=== PATIENT | male | born 1985 | race African-American/Black ===

== ENCOUNTER 2016-11-05 09:51 | Emergency (ER) | payer SELFPAY ==
[2016-11-05 10:04] VITALS: BMI 45.6
--- NOTE | 2016-11-05 10:51 | PDOC ---
History of Present Illness - General History Source: Patient Exam Limitations: No Limitations - History of Present Illness Initial Comments: 11/05/16 11:10 Patient is a 30 year old male with no pmhx who presents to the ED sent by optomologist for evaluation of DM. Patient reports blurry vision for 2 weeks with associated increased thirst, urinary frequency and urgency. He denies any dysuria. He denies any recent weight loss. Patient reports difficulty seeing far away. He denies fever or chills. He denies nausea, vomiting, diarrhea or constipation. He denies cp or SOB. He denies any headache. He denies any tingling or numbness. 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 <Karla Fonseca - Last Filed: 11/05/16 14:03> <Zuleima Mariano - Last Filed: 11/05/16 15:12> - General Chief Complaint: Blurry Vision Stated Complaint: SENT FOR EVALUATION R/O DM Time Seen by Provider: 11/05/16 10:22 Past History <Karla Fonseca - Last Filed: 11/05/16 14:03> - Past Medical History Other medical history: OBESITY, PT DENIES - Psycho/Social/Smoking Cessation Hx Suicidal Ideation: No Smoking History: Never smoked Information on smoking cessation initiated: No Hx Alcohol Use: No Drug/Substance Use Hx: No Substance Use Type: None <Zuleima Mariano - Last Filed: 11/05/16 15:12> - Past Medical History Allergies/Adverse Reactions: Allergies Allergy/AdvReac Type Severity Reaction Status Date / Time No Known Allergies Allergy Verified 11/05/16 10:04 Home Medications: Ambulatory Orders Glipizide 5 mg PO DAILY #14 tablet 11/05/16 Review of Systems - Review of Systems Able to Perform ROS?: Yes Comments:: 11/05/16 11:10 GENERAL/CONSTITUTIONAL: No fever or chills. No weakness. HEAD, EYES, EARS, NOSE AND THROAT: +blurry vision. No ear pain or discharge. No sore throat. GASTROINTESTINAL: No nausea, vomiting, diarrhea or constipation. GENITOURINARY: No dysuria, frequency, or change in urination. CARDIOVASCULAR: No chest pain or shortness of breath. RESPIRATORY: No cough, wheezing, or hemoptysis. MUSCULOSKELETAL: No joint or muscle swelling or pain. No neck or back pain. SKIN: No rash NEUROLOGIC: No headache, vertigo, loss of consciousness, or change in strength/ sensation. ENDOCRINE: No increased thirst. No abnormal weight change. HEMATOLOGIC/LYMPHATIC: No anemia, easy bleeding, or history of blood clots. ALLERGIC/IMMUNOLOGIC: No hives or skin allergy. <Karla Fonseca - Last Filed: 11/05/16 14:03> *Physical Exam - Vital Signs Last Vital Signs Temp Pulse Resp BP Pulse Ox 98.1 F 107 H 18 163/81 97 11/05/16 10:02 11/05/16 10:02 11/05/16 10:02 11/05/16 10:02 11/05/16 10:02 - Physical Exam Comments: 11/05/16 11:11 GENERAL: Awake, alert, and fully oriented, in no acute distress HEAD: No signs of trauma EYES: PERRLA, EOMI, sclera anicteric, conjunctiva clear ENT: Auricles normal inspection, hearing grossly normal, nares patent, oropharynx clear without exudates. Moist mucosa NECK: Normal ROM, supple, no lymphadenopathy, JVD, or masses LUNGS: Breath sounds equal, clear to auscultation bilaterally. No wheezes, and no crackles HEART: Regular rate and rhythm, normal S1 and S2, no murmurs, rubs or gallops ABDOMEN: +Obese. Soft, nontender, normoactive bowel sounds. No guarding, no rebound. No masses EXTREMITIES: Normal range of motion, no edema. No clubbing or cyanosis. No cords, erythema, or tenderness NEUROLOGICAL: Cranial nerves II through XII grossly intact. Normal speech, normal gait SKIN: Warm, Dry, normal turgor, no rashes or lesions noted. <Karla Fonseca - Last Filed: 11/05/16 14:03> - Vital Signs Last Vital Signs Temp Pulse Resp BP Pulse Ox 98.1 F 107 H 18 163/81 97 11/05/16 10:02 11/05/16 10:02 11/05/16 10:02 11/05/16 10:02 11/05/16 10:02 <Zuleima Mariano - Last Filed: 11/05/16 15:12> ED Treatment Course - LABORATORY CBC & Chemistry Diagram: 11/05/16 11:08 11/05/16 11:08 <Karla Fonseca - Last Filed: 11/05/16 14:03> - LABORATORY CBC & Chemistry Diagram: 11/05/16 11:08 11/05/16 14:03 <Zuleima Mariano - Last Filed: 11/05/16 15:12> Medical Decision Making - Medical Decision Making 11/05/16 14:04 A call was placed to [facility] and an appointment was made for the patient at 4:30PM today at [address] [place] [address] & patient must present with discharge papers from today and lab work done in the ED. <Karla Fonseca - Last Filed: 11/05/16 14:03> - Medical Decision Making 11/05/16 12:52 a/p: 30yo male presents for a 2 week hx of polydipsia and polyuria. Pt also with blurred vision x 2 weeks. Seen by ophtho who recommended eval for poss dm. -will check labs -ivf hydration -suspect new onset dm given symptoms. will check for electrolyte abnl and glucose 11/05/16 12:53 labs reviewed: Cr. 1.6, Glu >500, concern for dehydration causing elevated Cr 11/05/16 12:54 no prior labs to compare to call placed to [facility], awaiting call back for admission. 11/05/16 15:10 case discussed with , recommends outpt managemnet. States patient does not meet criteria for inpt admission or obs. Call placed to [facility] for 430 today. Glipizide Rx sent to pharmacy. Discussed need for patient to go tot clinic. Discussed all reasons for the patient to return to the ED. Discussed need for diet, exercise and diabetic diet. Answered all questions. <Zuleima Mariano - Last Filed: 11/05/16 15:12> *DC/Admit/Observation/Transfer - Attestations Scribe Attestion: 11/05/16 11:11 Documentation prepared by JAMAL Kurtz, acting as medical anthropologist for Zuleima Mariano DO, MD/. <Karla Fonseca - Last Filed: 11/05/16 14:03> - Discharge Dispostion Admit: No - Attestations Physician Attestion: 11/05/16 11:12 I, Dr. Zuleima Mariano, DO, attest that this document has been prepared under my direction and personally reviewed by me in its entirety. I further attest, that it accurately reflects all work, treatment, procedures and medical decision -making performed by me. <Zuleima Mariano - Last Filed: 11/05/16 15:12> Diagnosis at time of Disposition: Diabetes mellitus, new onset - Prescriptions Prescriptions: Glipizide 5 mg PO DAILY #14 tablet - Patient Instructions Printed Discharge Instructions: Type 2 Diabetes, Lifestyle Changes as Effective as Drugs in Preventing Progression to Diabet Additional Instructions: Please go to your appointment at [facility] at [address] [place] [address] , Please bring your labs with you.
[2016-11-05] MEDS ORDERED: SODIUM CHLORIDE 0.9% 1000 ML INFUS.BAG IV ONE ×2 (10:53→12:40)
[2016-11-05 11:52] LABS: BASOPHIL 0.8 % (0-2.0); EOSINOPHIL 0.4 % (0-4.5); MCH 29.5 pg (25.7-33.7); MCHC 33.6 g/dl (32.0-35.9); MEAN CELL VOLUME 87.9 fl (80-96); MEAN PLT VOLUME 9.4 fl (7.5-11.1); NEUTROPHILS 46.6 % (42.8-82.8); PLATELET COUNT 308 K/MM3 (134-434); RDW 13.3 % (11.9-15.9); WHITE BLOOD COUNT 8.3 K/mm3 (4.0-10.0)
[2016-11-05 12:19] LABS: ALBUMIN 3.9 g/dl (3.4-5.0); ANION GAP 15 (8-16); CALCIUM 9.5 mg/dL (8.5-10.1); CO2 21 mmol/L (21-32); CREATININE 1.6 mg/dL (0.7-1.3); MAGNESIUM 2.2 mg/dL (1.8-2.4); SGOT/AST 32 U/L (15-37); SGPT/ALT 82 U/L (12-78)
[2016-11-05 12:21] LABS: ALK PHOS 91 U/L (45-117); TOT PROT 7.8 g/dl (6.4-8.2)
[2016-11-05 12:34] LABS: GLUCOSE,RANDOM 589 mg/dL (74-106)
[2016-11-05] MEDS ORDERED: INSULIN REGULAR HUMAN 100 UNITS/ML *VIAL SQ ONE (13:12)
[2016-11-05 13:27] LABS: PH,URINE 5.5 (5.0-8.0); URINE APPEARANCE CLEAR; URINE BILIRUBIN NEGATIVE (NEGATIVE); URINE BLOOD NEGATIVE (NEGATIVE); URINE COLOR LT. YELLOW; URINE GLUCOSE (UA) 3+ (NEGATIVE); URINE KETONE NEGATIVE (NEGATIVE); URINE LEUK ESTERASE NEGATIVE (NEGATIVE); URINE NITRITE NEGATIVE (NEGATIVE); URINE PROTEIN NEGATIVE (NEGATIVE); URINE UROBILINOGEN 0.2 mg/dL (0.2-1.0)
[2016-11-05 14:54] LABS: ALBUMIN 3.4 g/dl (3.4-5.0); ALK PHOS 82 U/L (45-117); ANION GAP 8 (8-16); BILIRUBIN,TOTAL 0.9 mg/dL (0.2-1.0); CALCIUM 8.9 mg/dL (8.5-10.1); CO2 25 mmol/L (21-32); CREATININE 1.4 mg/dL (0.7-1.3); SGOT/AST 26 U/L (15-37); SGPT/ALT 74 U/L (12-78)
[2016-11-05 14:57] LABS: GLUCOSE,RANDOM 431 mg/dL (74-106)
[2016-11-05 15:39] VITALS: BP 158/88; PULSE 92; TEMP 98.8
== END 2016-11-05 15:39 | disposition home or self-care (01) ==
LOC: JER 09:51
PROC: 3E013VG Introduction of Insulin into Subcutaneous Tissue, Percutaneous Approach (ICD-10-PCS; principal; 2016-11-05)
DX: E11.65 Type 2 diabetes mellitus with hyperglycemia (principal)
CPT/HCPCS: 36415; 80053; 81003; 83735; 85025; 99283-25